=== PATIENT | female | born 1935 | race Caucasian/White ===

== ENCOUNTER → 2018-06-27 | Outpatient (CLI) | payer OTHER | END | disposition home or self-care (01) | LOC: PCVCCLINIC 11:20 | PROVIDERS: ATTEND Internal Medicine | DX: I48.91 Unspecified atrial fibrillation (principal); I10 Essential (primary) hypertension; E78.5 Hyperlipidemia, unspecified; E11.9 Type 2 diabetes mellitus without complications; Z88.8 Allergy status to other drugs, medicaments and biological substances; Z79.899 Other long term (current) drug therapy | CPT/HCPCS: G0463 ==